=== PATIENT | female | born 1965 | race Caucasian/White ===

== ENCOUNTER 2018-03-17 13:01 | Outpatient (CLI) | payer OTHER ==
--- NOTE | 2018-03-31 13:53 | MMO ---
BILATERAL SCREENING MAMMOGRAMS: INDICATIONS: Annual exam. COMPARISON: 05/20/2013 FINDINGS: The interpretation of this examination was assisted with computer aided detection. The are scattered fibroglandular elements bilaterally. No new suspicious mass, cluster of microcalcification, or area of architectural distortion is evident . IMPRESSION: BI-RADS Category 1: Negative. Recommend routine annual mammographic screening. POS: KATIA
== END 2018-03-17 13:02 | disposition home or self-care (01) ==
LOC: SCSMAMMO 13:01
PROVIDERS: ATTEND Family Medicine
DX: Z12.31 Encounter for screening mammogram for malignant neoplasm of breast (principal)
CPT/HCPCS: 77067

== ENCOUNTER 2020-10-04 08:14 | Observation (INO) | payer OTHER ==
[2020-10-04 09:11] LABS: #Basophils 0.1 thou/uL (0.0-0.2); #Eosinphils 0.3 thou/uL (0.0-0.7); #Lymphocytes 1.7 thou/uL (1.20-3.40); #Monocytes 0.5 thou/uL (0.11-0.59); #Neutrophils 5.5 thou/uL (1.40-6.50); %Basophils 0.8 % (0.0-1.0); %Eosinophils 3.4 % (0.0-10.0); %Lymphocytes 20.8 % (21.0-51.0); %Monocytes 6.7 % (0.0-10.0); %Neutrophils 68.3 % (42.0-75.0); Hemoglobin 13.6 g/dL (12.0-16.0); Mean Corpuscular Hemoglobin 30.1 pg (27.0-31.0); Mean Corpuscular Volume 91.2 fL (78.0-98.0); Mean Platelet Volume 7.5 fL (7.4-10.4); Platelet Count 305 thou/uL (130-400); RBC Distribution Width 13.3 % (11.5-14.5); Red Blood Cell (RBC) Count 4.53 mill/uL (4.20-5.40)
[2020-10-04] MEDS ORDERED: Ketorolac Tromethamine 30 MG/ML VIAL ONE (09:33)
[2020-10-04 09:35] LABS: ALT (SGPT) 20 U/L (8-55); AST (SGOT) 18 U/L (5-34); Albumin 3.5 g/dL (3.5-5.0); Alkaline Phosphatase 68 U/L (40-110); Anion Gap 14 mmol/L (10-20); BUN (Urea Nitrogen) 17 mg/dL (9.8-20.1); Bilirubin, Total 0.5 mg/dL (0.2-1.2); Calc. Creatinine Clearance 0 mL/min (70-130); Calcium 8.7 mg/dL (7.8-10.44); Carbon Dioxide 26 mmol/L (22-29); Chloride 106 mmol/L (98-107); Estimated GFR-MDRD 61; Globulin 3.4 g/dL (2.4-3.5); Glucose 160 mg/dL (70-105); Potassium 3.5 mmol/L (3.5-5.1); Protein, Total 6.9 g/dL (6.0-8.3); Sodium 142 mmol/L (136-145)
[2020-10-04 09:53] LABS: Bilirubin Negative (Negative); Blood, Urine Negative (Negative); Glucose, Urine (Dipstick) Negative (Negative); Ketone, Urine Negative (Negative); Leukocyte Negative (Negative); Nitrite Negative (Negative); Protein, Urine (Dipstick) Negative (Neg-Trace); Specific Gravity, Urine 1.025 (1.005-1.030); Urobilinogen 0.2 mg/dL (Less than 2)
[2020-10-04 09:56] LABS: Clarity Clear (Clear)
--- NOTE | 2020-10-04 10:47 | CT ---
CT ABDOMEN AND PELVIS WITHOUT CONTRAST STONE PROTOCOL: Date: 10/04/2020 HISTORY: Pain. COMPARISON: Abdomen and pelvis CT with contrast and without contrast 06/15/2020. FINDINGS: Similar appearance of the left lower lobe micronodules. No pericardial effusion. Moderate left hydronephrosis due to a partially obstructing ovoid calculus with smooth margins at the ureteropelvic junction measuring 6.0 mm x 4.0 mm x 5.0 mm. Nonobstructing 2.0 mm left intrapolar eren culus is present. No right-sided renal calculi. No periureteral inflammation. No dilated loops of large or small bowel. Mildly reactive ileocolic lymph nodes. No free intraperiton eal gas or fluid. High grade degenerative disease of the posterior elements of L5, including L4-L5 and L5-S1, with at l east moderate to high grade neural foraminal narrowing bilaterally at L5-S1. No acute osseous abnorma lity. IMPRESSION: 1. Partially obstructing ovoid smoothly marginated left ureteropelvic junction calculus measuring 6. 0 x 5.0 x 4.0 mm, with a nonobstructing 2.0 mm interpolar calyceal calculus. 2. Cholelithiasis without cholecystitis. 3. Mild diffuse hepatic steatosis. POS: AH
[2020-10-04] MEDS ORDERED: Ondansetron PF 4 MG/2 ML Vial IVP PRN (13:23)
[2020-10-04] MEDS ORDERED: Zolpidem Tartrate 5 MG TAB PO PRN (13:23)
[2020-10-04] MEDS ORDERED: diphenhydrAMINE 50 MG/ML VIAL IVP PRN (13:23)
[2020-10-04] MEDS ORDERED: Ketorolac Tromethamine 30 MG/ML VIAL IVP PRN (13:23)
[2020-10-04] MEDS ORDERED: Hyoscyamine Sulfate SL 0.125 mg Tablet SL PRN (13:23)
[2020-10-04] MEDS ORDERED: Morphine 2 MG/ML VIAL SLOW IVP PRN (13:23)
[2020-10-04] MEDS ORDERED: hydrALAZINE 20 MG/ML VIAL SLOW IVP PRN (13:23)
[2020-10-04] MEDS ORDERED: HYDROcodone/Acetaminophen 5/325 mg Tablet PO PRN (13:23)
[2020-10-04] MEDS: Sodium Chloride 0.9% 1,000 ML IV SCH ×2 (13:59→23:24)
[2020-10-04 16:47] VITALS: BMI 41.5
[2020-10-04 17:41] LABS: SARS-CoV-2 MS2 Positive; SARS-CoV-2 N Gene Negative; SARS-CoV-2 S Gene Negative; SARS-CoV-2 by NAA Not Detected (NotDetected); SARS-CoV-2 orf1ab Negative
--- NOTE | 2020-10-04 18:01 | HP ---
CHIEF COMPLAINT: Left-sided flank pain. HISTORY OF PRESENT ILLNESS: This is a 55-year-old female with a known left renal stone, initially seen by me on July 26. She has been having difficulty scheduling outpatient surgery and recently has been having increasing left-sided flank pain, which seemed to worsen acutely over the past 24 hours with severe left-sided flank pain with nausea and vomiting. She presented to the emergency room this morning, where a CT scan was performed, again showing the stone persistent in the left UPJ. Laboratory reviewed. White count 8.0, creatinine 0.95. Urinalysis negative for blood, nitrite, or leukocyte. She currently denies fevers, dysuria, or hematuria. PAST MEDICAL HISTORY: Asthma. SURGICAL HISTORY: . FAMILY HISTORY: Reviewed and noncontributory. SOCIAL HISTORY: Nonsmoker. . REVIEW OF SYSTEMS: A 12-point review of systems is negative except as mentioned in my HPI. PHYSICAL EXAMINATION: VITAL SIGNS: Afebrile, vitals stable. GENERAL: No acute distress. Conversant. HEENT: Head, normocephalic and atraumatic. Extraocular movements are intact. Sclerae are anicteric. NECK: Supple. Trachea midline. LUNGS: Unlabored breathing. Symmetric chest expansion. HEART: Regular rate and rhythm. ABDOMEN: Soft, nontender, nondistended. No flank tenderness. No suprapubic tenderness. SKIN: Warm and dry. NEUROLOGIC: Alert and oriented x3. PSYCHIATRIC: Normal mood and affect. DIAGNOSTIC STUDIES: I personally reviewed her CT scan, which shows on my measurement an almost 1 cm left UPJ stone. She does have minimal hydronephrosis on that side and a very small stone in the midpole of the left kidney. ASSESSMENT AND PLAN: Left renal stone, hydronephrosis. She has now failed outpatient therapy, and so she will be admitted overnight with plans to proceed tomorrow for left ureteroscopy with laser lithotripsy, basket extraction of stone, stent placement. I explained the procedure in detail including the expected postoperative course and the risks of bleeding, infection, pain, inability to access or clear the stone, ureteral injury or stricture formation, possible need for second procedure. She expressed understanding and wishes to proceed. Job ID: [id number]
[2020-10-04] MEDS: Docusate 100 MG CAP PO SCH (21:10)
[2020-10-05] MEDS ORDERED: Tamsulosin HCl 0.4 MG CAP PO SCH (09:00)
[2020-10-05] MEDS: Sodium Chloride 0.9% 1,000 ML IV SCH (10:47)
[2020-10-05] MEDS ORDERED: Levofloxacin 500 mg/D5W 100 ml Premix Bag ONE (12:44)
[2020-10-05] MEDS ORDERED: Lidocaine 1% PF 5 ML VIAL ONE (13:24)
[2020-10-05] MEDS ORDERED: PROPOFOL 200 MG/20 ML VIAL ONE (13:24)
[2020-10-05] MEDS ORDERED: Ondansetron PF 4 MG/2 ML Vial ONE (13:24)
[2020-10-05] MEDS ORDERED: Dexamethasone 20 MG/5 ML VIAL ONE (13:24)
[2020-10-05] MEDS ORDERED: Iothalamate Meglumine 60% 50 ML VIAL FS ONE (13:32)
[2020-10-05] MEDS ORDERED: Fentanyl 100 MCG/2 ML VIAL ONE (13:49)
[2020-10-05] MEDS ORDERED: Ketorolac Tromethamine 30 MG/ML VIAL ONE (14:19)
[2020-10-05] MEDS ORDERED: Oxybutynin 5 MG TAB ONE ×2 (14:19)
[2020-10-05] MEDS ORDERED: HYDROmorphone 2 MG/ML VIAL SLOW IVP PRN (14:34)
[2020-10-05] MEDS ORDERED: Ondansetron HCl/PF 4 MG/2 ML Vial IVP PRN (14:34)
[2020-10-05] MEDS ORDERED: Promethazine HCl 25 MG/ML VIAL IM PRN (14:34)
[2020-10-05] MEDS ORDERED: Promethazine HCl 25 MG/ML VIAL SLOW IVP PRN (14:34)
--- NOTE | 2020-10-05 14:42 | OP ---
DATE OF PROCEDURE: 10/05/2020 PREOPERATIVE DIAGNOSIS: Left renal stone. POSTOPERATIVE DIAGNOSIS: Left renal stone. PROCEDURES PERFORMED: Left ureteroscopy with laser lithotripsy, basket extraction of stone, retrograde pyelogram, intraoperative interpretation of radiologic imaging, 4.8 x 24 double-J ureteral stent without string placement. ANESTHESIA: General. COMPLICATIONS: None. ESTIMATED BLOOD LOSS: None. SPECIMEN: Left renal stone fragments. DESCRIPTION OF PROCEDURE: After informed consent, the patient was taken to the operating room, transferred to the table on her own power. Anesthesia was established. A time-out was performed showing correct patient, site, and procedure. Preoperative antibiotics were administered. She was prepped and draped in the lithotomy position. The rigid cystoscope was advanced through the urethra into the bladder. The bladder was systematically examined noting no mucosal abnormalities. The left ureteral orifice was cannulated with a wire, which was passed up to the level of the renal pelvis under fluoroscopic guidance. The scope was then removed and then an access sheath passed over the wire into the proximal ureter under fluoroscopic guidance. A retrograde pyelogram was performed through the access sheath showing filling defect at the left UPJ with hydronephrosis beyond. The flexible ureteroscope was negotiated through the access sheath into the left UPJ, where the stone was found to be partially impacted. It was dislodged into the renal pelvis. A 200 micron laser fiber was used to fragment the stone into several small pieces, which were all removed with a Nitinol basket. The collecting system was then examined noting no further clinically significant stone fragments. I was not able to appreciate the second small stone seen on CT scan. The pelvis was then filled with contrast and the scope and access sheath withdrawn leaving a wire in place. A 4.8 x 24 double-J ureteral stent was passed over the wire with a curl in the kidney and curl in the bladder. Strings were not left attached and the patient is scheduled for removal on October 15. She was then awoken from anesthesia, transferred back to her hospital bed, and taken to PACU in stable condition, where she will return to the floor before discharging home. Job ID: [id number]
[2020-10-05] MEDS: Docusate 100 MG CAP PO SCH (16:16)
[2020-10-05 16:21] VITALS: BP 131/78; TEMP 97.3
--- NOTE | 2020-10-06 08:04 | RAD ---
Retrograde ureterogram intraoperative fluoroscopy HISTORY: Left ureteral stone. FINDINGS: Intraoperative fluoroscopy was provided for retrograde study as performed by Dr. Lisa. Single spot fluoroscopic image of the left abdomen shows contrast opacification of a nondilated left ureter and mildly dilated left renal collecting system. The distal ureter and bladder are not in cluded. No filling defects are apparent.
[2020-10-06] MEDS ORDERED: Loratadine 10 MG TAB PO SCH (09:00)
== END 2020-10-05 19:41 | disposition home or self-care (01) ==
LOC: ERS 08:14 → ERHOLD 11:10 → SURG B 12:59
PROVIDERS: ADMIT Urology; ATTEND Urology
PROC: 0TC48ZZ Extirpation of Matter from Left Kidney Pelvis, Via Natural or Artificial Opening Endoscopic (ICD-10-PCS; principal; 2020-10-05)
PROC: 0T778DZ Dilation of Left Ureter with Intraluminal Device, Via Natural or Artificial Opening Endoscopic (ICD-10-PCS; 2020-10-05)
DX: N13.2 Hydronephrosis with renal and ureteral calculous obstruction (principal); J45.909 Unspecified asthma, uncomplicated; K80.20 Calculus of gallbladder without cholecystitis without obstruction; K76.0 Fatty (change of) liver, not elsewhere classified; Z87.891 Personal history of nicotine dependence; Z79.899 Other long term (current) drug therapy; Z20.828 Contact with and (suspected) exposure to other viral communicable diseases
CPT/HCPCS: 74176; 74420; 80053; 81003; 82365; 85025; 87635; 88300; 94760; 96374; G0378; J1100; J1885; J1956; J2405; J2704; J3010; U0003

== ENCOUNTER 2024-11-10 06:57 | Outpatient (CLI) | payer OTHER | END 2024-11-10 06:58 | disposition home or self-care (01) | LOC: BICULT 06:57 | PROVIDERS: ATTEND Family Medicine | DX: R10.11 Right upper quadrant pain (principal); K80.20 Calculus of gallbladder without cholecystitis without obstruction; R16.0 Hepatomegaly, not elsewhere classified; K76.0 Fatty (change of) liver, not elsewhere classified | CPT/HCPCS: 76705 ==